=== PATIENT | male | born 1980 | race Caucasian/White ===

== ENCOUNTER → 2019-06-07 | Outpatient (CLI) | payer BC ==
[~2019-06-07] MED LIST: CIPROFLOXACIN500 M1 PO; FLAGYL500 MG PO; HYDROCODONE-APA1 TA1 PO
== END ==
LOC: M.MRI 08:37
DX: M25.462 Effusion, left knee (principal); M71.22 Synovial cyst of popliteal space [Baker], left knee; M91.0 Juvenile osteochondrosis of pelvis

== ENCOUNTER 2020-06-18 09:24 | Emergency (ER) | payer BC ==
[~2020-06-18] VITALS: Ht 190.5 cm; Wt 99.8 kg
[2020-06-18 10:02] LABS: ABSOLUTE BASOPHILS 0.1 thou/uL (0.0-0.2); ABSOLUTE EOSINOPHILS 0.1 thou/uL (0.0-0.7); ABSOLUTE LYMPHOCYTES 1.8 thou/uL (0.8-5.3); ABSOLUTE MONOCYTES 0.9 thou/uL (0.0-1.2); ABSOLUTE NEUTROPHILS 6.8 thou/uL (1.6-8.1); BASOPHILS 0.7 %; EOSINOPHILS 0.8 %; HEMATOCRIT 46.3 % (42.0-52.0); HEMOGLOBIN 15.6 gm/dL (14.0-18.0); LYMPHOCYTES 18.9 %; MCH 30.2 pg (26.0-34.0); MCHC 33.8 g/dL (28.0-37.0); MCV 89.6 fL (80.0-100.0); MONOCYTES 9.4 %; MPV 9.9 fl. (7.2-11.1); NUCLEATED RBCS 0 /100WBC; PLATELET COUNT* 201 thou/uL (150-400); POLYS 70.2 %; RBC 5.17 mil/uL (4.50-6.00); RDW-CV 12.4 % (10.5-14.5); WBC 9.7 thou/uL (4.0-11.0)
[2020-06-18 10:12] LABS: URINE BILIRUBIN NEGATIVE (Negative); URINE BLOOD NEGATIVE (Negative); URINE CLARITY CLEAR; URINE COLOR YELLOW; URINE GLUCOSE-RANDOM NEGATIVE (Negative); URINE KETONES NEGATIVE (Negative); URINE LEUKOCYTES-REFLEX NEGATIVE (Negative); URINE NITRITE-REFLEX NEGATIVE (Negative); URINE PROTEIN NEGATIVE (Negative); URINE UROBILINOGEN 0.2 E.U./dl (0.2-1.0)
[2020-06-18 10:16] LABS: CALCIUM 9.2 mg/dL (8.5-10.1); CREATININE 1.2 mg/dL (0.6-1.3); POTASSIUM 4.5 mmol/L (3.5-5.1)
[2020-06-18 10:21] LABS: TOTAL BILIRUBIN 1.2 mg/dL (<0.1-1.0); TOTAL PROTEIN 7.7 g/dL (6.4-8.2)
[2020-06-18] MEDS ORDERED: FLAGYL500 M1 PO (11:35)
[2020-06-18] MEDS ORDERED: NORCO 5-325 TA1 EAC2 PO (11:35)
[2020-06-18] MEDS ORDERED: CIPROFLOXACIN500 M1 PO (11:35)
[2020-06-18 11:40] VITALS: BP 122/90
--- NOTE | 2020-06-18 17:49 | EKG ---
[place] [address] ELECTROCARDIOGRAM REPORT Name: DORIS STOUT Room: [facility]#: [id number] Admission: 06/18/20 Attend Phys: Discharge: 06/18/20 Date of : 80 Date of Service: 06/18/2058 Report #: [id number] THIS REPORT FOR: //name// [facility] ED Test Date: 2020-06-18 Test Time: 09:58:27 Pat Name: DORIS STOUT Department: Room: Gender: Radio Mach[employer]ist: [facility] : 1980 Requested By: Chito Mcadams Order Number: [id number] MD: Jan Holley Measurements Intervals [place] Rate: 65 P: 36 AK: 161 QRS: 27 QRSD: 99 T: 23 QT: 377 QTc: 392 Interpretive Statements Sinus rhythm Abnormal R-wave progression, early transition No previous ECG available for comparison Electronically Signed On 06-18-2020 17:49:03 CDT by Jan Holley [email or web address] <ELECTRONICALLY SIGNED> By: Jan Holley MD, [facility] 06/18/20 1749 7 Jan Holley MD, FACC /EPI
== END 2020-06-18 11:40 | disposition home or self-care (01) ==
LOC: M.ERS 09:24
PROVIDERS: Family Medicine
DX: K57.32 Diverticulitis of large intestine without perforation or abscess without bleeding (principal)